=== PATIENT | female | born 1955 | race Caucasian/White ===

== ENCOUNTER 2025-03-23 03:26 | Emergency (ER) | payer MEDICARE ==
[~2025-03-23] VITALS: Ht 157.5 cm; Wt 54.4 kg
[2025-03-23] MEDS: IV NS 0.9% 1,000 ML BAG IV ONE (04:13)
[2025-03-23 04:23] LABS: PLATELET COUNT (AUTO) 197 K/uL (150-450); RED BLOOD CELL COUNT(AUTO) 4.67 MIL/uL (4.0-5.2); RED CELL DISTRIBUTION WIDTH 12.7 % (11.5-15.0); WHITE BLOOD COUNT (AUTO) 3.9 K/uL (4.3-11.0)
[2025-03-23 04:37] LABS: CALCIUM, SERUM 9.0 mg/dL (8.5-10.1); CREATININE 1.0 mg/dL (0.6-1.3); SODIUM SERUM 137 mmol/L (136-145); UREA NITROGEN, BLOOD 15 mg/dL (7-18)
[2025-03-23 04:46] LABS: LACTIC ACID 4.2 mmol/L (0.4-2.0)
[2025-03-23 04:50] LABS: ASPARTATE AMINOTRANSFERASE 19 U/L (15-37); TOTAL PROTEIN, SERUM 7.1 g/dL (6.4-8.2)
[2025-03-23 05:42] VITALS: BP 112/79; TEMP 98.6; O2SAT 99
== END 2025-03-23 05:42 | disposition home or self-care (01) ==
LOC: ER 03:32
DX: R56.9 Unspecified convulsions (principal)
CPT/HCPCS: 99284; 96360; 70450; 71045; 85025; 83605; 36415; 80053; J7030